=== PATIENT | female | born 1955 | race African-American/Black ===

== ENCOUNTER 2019-02-13 13:54 | Inpatient (IN) | payer OTHER ==
[2019-02-13 18:11] VITALS: BMI 19.6
--- NOTE | 2019-02-13 19:05 | HP ---
COWS - Scale Resting Pulse: 0= [place] 80 or Below Sweatin=Flushed/Facial Moisture (Increased facial moisture) Restless Observation: 5= Unable to Sit Still Pupil Size: 0= Normal to Room Light Bone or Joint Aches: 4=Acute Joint/Muscle Pain (Chronic) Runny Nose/ Eye Tearin= Nasal Congestion GI Upset > 30mins: 0= None Tremor Observation: 2= Slight Tremor Visible Yawning Observation: 0= None Anxiety or Irritability: 4=Extreme Anxiety Goose Flesh Skin: 0=Smooth Skin COWS Score: 18 CIWA Score Nausea/Vomitin-No Nausea/No Vomiting Muscle Tremors: 4-Moderate,w/Arms Extend Anxiety: 4-Mod. Anxious/Guarded Agitation: 4-Moderately Restless Paroxysmal Sweats: 3 (Increased facial moisture) Orientation: 1-Uncertain about Date Tacttile Disturbances: 0-None Auditory Disturbances: 0-None Visual Disturbances: 0-None Headache: 3-Moderate (Frontal) CIWA-Ar Total Score: 19 - Admission Criteria OAS Guidelines: Admission for Medically Managed Detox: Requires at least one of the followin. CIWA greater than 12 2. Seizures within the past 24 hours 3. Delirium tremens within the past 24 hours 4. Hallucinations within the past 24 hours 5. Acute intervention needed for co occurring medical disorder 6. Acute intervention needed for co occurring psychiatric disorder 7. Severe withdrawal that cannot be handled at a lower level of care (continued vomiting, continued diarrhea, abnormal vital signs) requiring intravenous medication and/or fluids 8. Patient presents the following: CIWA greater than 12 Admission Criteria Met: Admission criteria met Admission ROS [facility] Chief Complaint: Here for alcohol withdrawal. Allergies/Adverse Reactions: Allergies Allergy/AdvReac Type Severity Reaction Status Date / Time erythromycin base Allergy Verified 02/13/19 18:04 History of Present Illness: First admission for this 63 yof w/ hx AUD and chronic hip and knee pain x 3 years. Has been on oxycodone x 3 years. States never treated in past for alcohol or drug. Alcohol use since age 11. Current use past 3-4 years Cocaine use since age 11 Opiates: Heroin use age 11 - 28's. Illicit Methadone use 1-2 x/week; unsure of dosage; Using for 3-4 years Prescribed opiates x 3 years. PMHx: HIV+ (on Genvoya), Knee pain, (R) hip pain, Varicose veins, MHHx: Anxiety, depression. Denies thoughts of harming self or others. Sees Provider regularly. Patient informed that oxycodone will not be given for pain and verbalized an understanding. Patient Name: Rupa Kasper Date: 1955 Address: [address] [place] [address] Sex: Female Rx Written Rx Dispensed Drug Quantity Days Supply Prescriber Name 02/11/2019 02/11/2019 oxycodone hcl 20 mg tablet 90 30 Reji, Pallavi 01/12/2019 01/13/2019 oxycodone hcl 20 mg tablet 90 30 Edwardo Null) 12/15/2018 12/15/2018 oxycodone hcl 20 mg tablet 90 30 Light, Paola S 11/14/2018 11/14/2018 oxycodone hcl 20 mg tablet 90 30 Reji, Pallavi 10/14/2018 10/14/2018 oxycodone hcl 20 mg tablet 90 30 Edwardo Null) 09/12/2018 09/13/2018 oxycodone hcl 20 mg tablet 90 30 Reji, Pallavi 08/14/2018 08/15/2018 oxycodone hcl 20 mg tablet 90 30 Reji, Pallavi 07/15/2018 07/16/2018 oxycodone hcl 20 mg tablet 90 30 Reji, Pallavi 06/16/2018 06/17/2018 oxycodone hcl 20 mg tablet 90 30 Reji, Pallavi 05/14/2018 05/15/2018 oxycodone hcl 20 mg tablet 90 30 Reji, Pallavi 04/14/2018 04/15/2018 oxycodone hcl 20 mg tablet 90 30 Light, Paola S 03/13/2018 03/14/2018 oxycodone hcl 20 mg tablet 90 30 Reji, Pallavi Exam Limitations: No Limitations - Ebola screening Have you traveled outside of the country in the last 21 days: No Have you had contact with anyone from an Ebola affected area: No Have you been sick,other than usual withdrawal symptoms: No (Denies recent exposure to measles) Do you have a fever: No - Review of Systems Constitutional: Diaphoresis, Changes in sleep (Difficulty falling asleep.) EENT: reports: Blurred Vision, Nose Congestion, Dental Problems (No teeth) Respiratory: reports: No Symptoms reported Cardiac: reports: No Symptoms Reported GI: reports: No Symptoms Reported : reports: No Symptoms Reported Musculoskeletal: reports: Joint Pain ((R) hip and Silverio knee pain. Pain is sharp "8". Improves w/ pain medication and rest. Worse w/ walking.) Integumentary: reports: Other (Varicose veins) Neuro: reports: Headache (Frontal) Endocrine: reports: No Symptoms Reported Hematology: reports: No Symptoms Reported Psychiatric: reports: Judgement Intact, Agitated, Anxious, Depressed Other Systems: Reviewed and Negative Patient History - PPD History Previous Implant?: Yes Documented Results: Negative w/o proof Implanted On Prior [facility] Admission?: Yes PPD to be Administered?: Yes - Smoking Cessation Smoking history: Current every day smoker Have you smoked in the past 12 months: Yes Aproximately how many cigarettes per day: 20 Hx Chewing Tobacco Use: No Initiated information on smoking cessation: Yes 'Breaking Loose' booklet given: 02/13/19 - Substance & Tx. History Hx Alcohol Use: Yes Hx Substance Use: Yes Substance Use Type: Alcohol, Cocaine, Heroin, Prescribed (Oxycodone ) Hx Substance Use Treatment: Yes - Substances abused Heroin Substance route: Inhalation Frequency: Daily Amount used: 5 bags Age of first use: 11 Date of last use: 02/13/19 Alcohol Substance route: Oral Frequency: Daily Amount used: 5 12 0z of vodka and 5 24 oz of beer Age of first use: 10 Date of last use: 02/13/19 Non-Rx Methadone Substance route: Oral Frequency: 1-2 times per week Amount used: 2 capfulls Age of first use: 59 Date of last use: 02/12/19 Admission Physical Exam BHS - Vital Signs Vital Signs: Vital Signs - 24 hr 02/13/19 18:06 Temperature 97.7 F Pulse Rate 76 Respiratory 18 Rate Blood Pressure 107/64 - Physical General Appearance: Yes: Moderate Distress, Tremorous, Irritable, Sweating ( Increased facial moisture), Anxious HEENTM: Yes: Hearing grossly Normal, Normocephalic, ELENA (Pupils = 3 mm), Pharynx Normal, Nasal Congestion, Rhinorrhea Respiratory: Yes: Lungs Clear, Normal Breath Sounds, No Respiratory Distress Neck: Yes: No masses,lesions,Nodules, Supple Breast: Yes: Breast Exam Deferred Cardiology: Yes: Regular Rhythm, Regular Rate, S1, S2 Abdominal: Yes: Non Tender, Soft, Hernia (Ventral hernia, soft, reducible, non- tender) Genitourinary: Yes: Within Normal Limits Back: Yes: Normal Inspection Musculoskeletal: Yes: full range of Motion Extremities: Yes: Normal Capillary Refill, Tremors (mild), Other (Silverio engorged varicose veins. pedal pulses (+).) Neurological: Yes: Alert, Motor Strength 5/5 Integumentary: Yes: Normal Color, Warm Lymphatic: Yes: Within Normal Limits - Diagnostic (1) Alcohol dependence with uncomplicated withdrawal Current Visit: Yes Status: Acute (2) Opioid dependence with withdrawal Current Visit: Yes Status: Acute Comment: using licit and illicit opiates (3) Varicose veins of both lower extremities Current Visit: Yes Status: Chronic Qualifiers: Varicose vein complication: asymptomatic Qualified Code(s): I83.93 - Asymptomatic varicose veins of bilateral lower extremities (4) Ventral hernia Current Visit: Yes Status: Chronic Qualifiers: Obstruction and gangrene presence: without obstruction or gangrene Qualified Code(s): K43.9 - Ventral hernia without obstruction or gangrene (5) Nicotine dependence, uncomplicated Current Visit: Yes Status: Chronic Qualifiers: Nicotine product type: cigarettes Qualified Code(s): F17.210 - Nicotine dependence, cigarettes, uncomplicated (6) Cocaine dependence, uncomplicated Current Visit: Yes Status: Chronic (7) Unsteady gait Current Visit: Yes Status: Chronic (8) Joint pain Current Visit: Yes Status: Chronic Qualifiers: Joint pain location: unspecified Qualified Code(s): M25.50 - Pain in unspecified joint Comment: (R) Hip, both knees (9) HIV (human immunodeficiency virus infection) Current Visit: Yes Status: Chronic Qualifiers: HIV symptom status: unspecified Qualified Code(s): B20 - Human immunodeficiency virus [HIV] disease Cleared for Admission [facility] - Detox or Rehab [facility] Level of Care: Medically Managed Detox Regimen/Protocol: Methadone/Librium Claeared for Rehab Admission: No Breathalyzer - Breathalyzer Breathalyzer: 0.010 Urine Drug Screen - Test Device Lot number: [id number] Expiration date: 10/29/19 - Control Is test valid?: Yes - Results Drug screen NEGATIVE: No Urine drug screen results: SHEN-Cocaine, OXY-Oxycodone, MTD-Methadone Inpatient Rehab Admission - Rehab Decision to Admit Inpatient rehab admission?: No
[2019-02-13] MEDS ORDERED: MAG HYDROX/AL HYDROX/SIMETH 30 ML UNIT-DOSE CUP PO PRN (19:41)
[2019-02-13] MEDS ORDERED: MENTHOL/PHENOL 1 EACH UD MM PRN (19:41)
[2019-02-13] MEDS ORDERED: BISMUTH SUBSALICYLATE 524 MG/30 ML UD PO PRN (19:41)
[2019-02-13] MEDS ORDERED: cloNIDine HCL 0.1 MG TABLET PO PRN (19:41)
[2019-02-13] MEDS ORDERED: ACETAMINOPHEN 325 MG TABLET (FP) PO PRN (19:41)
[2019-02-13] MEDS ORDERED: MAGNESIUM HYDROX 2400MG/30ML ORAL SUSPENSION 30 ML CUP PO PRN (19:41)
[2019-02-13] MEDS ORDERED: IBUPROFEN 400 MG TABLET (FP) PO PRN (19:41)
[2019-02-13] MEDS ORDERED: MELATONIN 5 MG TABLETS PO PRN (19:41)
[2019-02-13] MEDS ORDERED: chlordiazePOXIDE HCL 10 MG CAPSULE PO PRN (19:41)
[2019-02-13] MEDS ORDERED: NICOTINE POLACRILEX 2 MG GUM BUC PRN (19:41)
[2019-02-13] MEDS ORDERED: MAGNESIUM CITRATE 300 ML BOTTLE PO PRN (19:41)
[2019-02-13] MEDS ORDERED: chlordiazePOXIDE HCL 25 MG CAPSULE PO ONE (19:41)
[2019-02-13] MEDS: chlordiazePOXIDE HCL 25 MG CAPSULE PO SCH (21:58)
[2019-02-13] MEDS: THIAMINE HCL 100 MG TABLET (FP) PO SCH (22:00)
[2019-02-13] MEDS ORDERED: METHADONE HCL 10 MG TABLET (FOR DETOX USE ONLY) PO ONE (23:00)
[2019-02-14] MEDS ORDERED: LORazepam 2 MG/ML SDV VIAL IM ONE (03:10)
[2019-02-14] MEDS ORDERED: KETOROLAC TROMETHAMINE 30 MG/1 ML VIAL IM ONE (03:11)
[2019-02-14] MEDS: chlordiazePOXIDE HCL 25 MG CAPSULE PO SCH ×2 (05:08→12:39)
[2019-02-14] MEDS ORDERED: METHADONE HCL 10 MG TABLET (FOR DETOX USE ONLY) PO ONE (10:00)
[2019-02-14] MEDS ORDERED: PATIENT'S OWN MEDICATION (NON-FORMULARY) (Elviteg/Cob/Emtri/Tenof Alafen 1 EACH) PO SCH (10:00)
[2019-02-14 10:17] LABS: EPI CELLS 2.4 /HPF (0-5/HPF); HYALINE CASTS 12 /lpf (0-8); URINE APPEARANCE CLEAR; URINE BACTERIA 98.2 /hpf (NEGATIVE); URINE BILIRUBIN NEGATIVE (NEGATIVE); URINE COLOR YELLOW; URINE GLUCOSE (UA) NEGATIVE (NEGATIVE); URINE KETONE NEGATIVE (NEGATIVE); URINE LEUK ESTERASE TRACE (NEGATIVE); URINE NITRITE NEGATIVE (NEGATIVE); URINE PROTEIN TRACE (NEGATIVE); URINE RBC 10 /hpf (0-4); URINE UROBILINOGEN 0.2 mg/dL (0.2-1.0); URINE WBC 13 /hpf (0-5)
[2019-02-14] MEDS: amLODIPine BESYLATE 10 MG TABLET (FP) PO SCH (11:00)
[2019-02-14] MEDS: GABAPENTIN 300 MG CAPSULE (FP) PO SCH ×2 (11:06→22:42)
[2019-02-14] MEDS: PRENATAL VITAMINS W/ FOLIC ACID TABLET (FP) PO SCH (11:06)
[2019-02-14] MEDS: NICOTINE 21 MG/24 HOURS TOPICAL PATCH TD SCH (11:12)
--- NOTE | 2019-02-14 11:27 | PN ---
[facility] Progress Note Note: PT IS ON 1:1 FOR SAFETY DUE TO AGITATION AND INCREASED MOVEMENT. PT WAS SEEN IN BED WITH MOST OF BREAKFAST ON TABLE EATEN. PT WAS BEING HELPED BY THE NURSE'S DISTRICT PLANT SUPERVISOR. PT WAS CALM AND TAKING A NAP SOON AFTER BREAKFAST AT THE TIME OF ENCOUNTER. Vital Signs 02/14/19 02/14/19 06:30 09:44 Temperature 97.6 F Pulse Rate 62 Respiratory 18 18 Rate Blood Pressure 96/54 L Laboratory Tests 02/13/19 11:10 Urine Color Yellow Urine Appearance Clear Urine pH 5.0 Ur Specific [place] 1.020 Urine Protein Trace Urine Glucose (UA) Negative Urine Ketones Negative Urine Blood Trace Urine Nitrite Negative Urine Bilirubin Negative Urine Urobilinogen 0.2 Ur Leukocyte Esterase Trace Urine WBC (Auto) 13 Urine RBC (Auto) 10 Urine Casts (Auto) 12 U Epithel Cells (Auto) 2.4 Urine Bacteria (Auto) 98.2 NO LABS DRAWN SO FAR ON THIS PATIENT. PLAN:MAINTAIN SAFETY PER PROTOCOL. FOLLOW UP WITH ADMISSION LAB WORK WHEN PT IS LESS AGITATED. WILL SEE PATIENT AGAIN WHEN AWAKE TO ASSESS STATUS. ADDENDUM:NURSE CALLED THIS CLICKING MACHINE OPERATOR TO REPORT THAT PT BROUGHT IN HER LOOSE MEDICATIONS OF WHICH SPECIFIC CONCERN WAS GENVOYA. PHARMACIST RIKY WAS UNABLE TO DISPENSE DUE TO UNCONFIRMED CURRENT USE OF MEDICATION. THIS CLICKING MACHINE OPERATOR CALLED PT[facility] S HOME PHARMAC[facility] GENVOYA RX ON AND 02/11/19. PT WAS GIVEN #30 DAYS SUPPLY ON LAST GRIEVANCE AND APPEALS SPECIALIST.
[2019-02-14] MEDS: KETOROLAC TROMETHAMINE 10 MG TABLET PO PRN ×2 (12:19→22:41)
--- NOTE | 2019-02-14 12:26 | CONSULT ---
[facility] Psychiatric Consult - Data Date of interview: 02/14/19 Admission source: [facility] Identifying data: First admission to [facility] for this 63 y/o AA female self- referred for detoxification (cocaine, heroin, alcohol). Examined at [address] [place] [address]. Patient is , a mother of two, domiciled, disabled, unemployed and supported on SSI benefits. Substance Abuse History: Confirmed by patient. Details in current [facility] report as follows : Smoking history: Current every day smoker. Have you smoked in the past 12 months: Yes. Aproximately how many cigarettes per day: 20. Hx Chewing Tobacco Use: No. Initiated information on smoking cessation: Yes. 'Breaking Loose' booklet given: 02/13/19. - Substance & Tx. History. Hx Alcohol Use: Yes. Hx Substance Use: Yes. Substance Use Type: Alcohol, Cocaine, Heroin, Prescribed (Oxycodone ). Hx Substance Use Treatment: Yes. - Substances abused. Heroin. Substance route: Inhalation. Frequency: Daily. Amount used: 5 bags. Age of first use: 11. Date of last use: 02/13/19. Alcohol. Substance route: Oral. Frequency: Daily. Amount used: 5 12 0z of vodka and 5 24 oz of beer. Age of first use: 10. Date of last use: 02/13/19. Non-Rx Methadone. Substance route: Oral. Frequency: 1-2 times per week. Amount used : 2 capfulls. Age of first use: 59. Date of last use: 02/12/19 Medical History: Remarkable for HIV infection, hip pain and varicose veins. Psychiatric History: Patient denies history of psychiatric hospitalizations, OPD care and suicide attempts. Physical/Sexual Abuse/Trauma History: Patient denies history of abuse. Additional Comment: Urine drug screen results: SHEN-Cocaine, OXY-Oxycodone, MTD- Methadone. Noted. Mental Status Exam - Mental Status Exam Alert and Oriented to: Time, Place, Person Cognitive Function: Grossly Intact Patient Appearance: Disheveled (thin habitus, small stature) Mood: Withdrawn, Irritable Affect: Mood Congruent Patient Behavior: Restless, Fatigued, Cooperative Speech Pattern: Clear Voice Loudness: Normal Thought Process: Disorganized Thought Disorder: Bizarre Hallucinations: Denies Suicidal Ideation: Denies Homicidal Ideation: Denies Insight/Judgement: Poor Sleep: Poorly Appetite: Poor, Weight loss Gait/Station: Other (unsteady) Psychiatric Findings - Problem List ([place] 1, 2,3) (1) Alcohol dependence with uncomplicated withdrawal Current Visit: Yes Status: Acute (2) Opioid dependence with withdrawal Current Visit: Yes Status: Acute Comment: using licit and illicit opiates (3) Cocaine dependence, uncomplicated Current Visit: Yes Status: Chronic (4) Nicotine dependence, uncomplicated Current Visit: Yes Status: Chronic Qualifiers: Nicotine product type: cigarettes Qualified Code(s): F17.210 - Nicotine dependence, cigarettes, uncomplicated (5) Substance induced mood disorder Current Visit: Yes Status: Suspected (6) Insomnia Current Visit: Yes Status: Chronic (7) Unsteady gait Current Visit: Yes Status: Acute - Initial Treatment Plan Initial Treatment Plan: Continue 1:1 Constant Observation for safety (medical reasons : unsteady gait/high risk for falls). Detoxification. Support. Patient is agreeable with this plan.
[2019-02-14] MEDS: METHOCARBAMOL 500 MG TABLET PO PRN ×2 (13:48→22:42)
--- NOTE | 2019-02-14 15:27 | PN ---
[facility] CIWA - CIWA Score Nausea/Vomitin-No Nausea/No Vomiting Muscle Tremors: 1-None Visible, but [place] Anxiety: 6 Agitation: 6 Paroxysmal Sweats: No Perspiration Orientation: 1-Uncertain about Date Tacttile Disturbances: 3-Moderate Itch/Numb/Burn Auditory Disturbances: 0-None Visual Disturbances: 0-None Headache: 0-None Present CIWA-Ar Total Score: 17 BHS COWS - Scale Resting Pulse: 0= [place] 80 or Below Sweatin= No chills or Flushing Restless Observation: 5= Unable to Sit Still Pupil Size: 0= Normal to Room Light Bone or Joint Aches: 4=Acute Joint/Muscle Pain Runny Nose/ Eye Tearin= None GI Upset > 30mins: 0= None Tremor Observation of Outstretched Hands: 1= Tremor [place], Not Seen Yawning Observation: 0= None Anxiety or Irritability: 2=Irritable/Anxious Goose Flesh Skin: 0=Smooth Skin COWS Score: 12 BHS Progress Note (SOAP) Subjective: PT IS EXTREMELY AGITATED, UNABLE TO SIT STILL. PT IS ON 1:1 FOR SAFETY. REPORTS UNCONTROLLABLE MUSCLE ACHES AND CRAMPS WITH CONSTANT WRIGGLING AND UNSTEADY MOVEMENTS IN BED. PT IS EATING WELL WITH STAFF ASSISTANCE. OCCASIONAL OOB TO BATHROOM WITH CLOSE MONITORING. PT RESPONDS VERBALLY WHEN SHE WANTS TO. Objective: 02/14/19 15:41 Vital Signs 02/14/19 02/14/19 09:44 14:29 Temperature 97.6 F 96.5 F L Pulse Rate 62 55 L Respiratory 18 16 Rate Blood Pressure 96/54 L 91/57 L Laboratory Tests 02/13/19 11:10 Urine Color Yellow Urine Appearance Clear Urine pH 5.0 Ur Specific [place] 1.020 Urine Protein Trace Urine Glucose (UA) Negative Urine Ketones Negative Urine Blood Trace Urine Nitrite Negative Urine Bilirubin Negative Urine Urobilinogen 0.2 Ur Leukocyte Esterase Trace Urine WBC (Auto) 13 Urine RBC (Auto) 10 Urine Casts (Auto) 12 U Epithel Cells (Auto) 2.4 Urine Bacteria (Auto) 98.2 H/P EKG:DONE THIS AFTERNOON WITH PT'S COOPERATION AND AFTER PAIN MEDICATION. EKG:SINUS BRADYCARDIA HR 59 SEPTAL INFARCT,AGE UNDETERMINED ABNORMAL ECG ASSYMPTOMATIC Assessment: 02/14/19 15:45 WITHDRAWAL SX Plan: CONTINUE DETOX PROTOCOLS MAINTAIN SAFETY PROTOCOLS. ASSIST WITH CARE INCREASE PO FLUIDS TOLERATED.
[2019-02-14] MEDS: chlordiazePOXIDE 5 MG CAPSULE PO SCH (21:42)
[2019-02-14] MEDS: THIAMINE HCL 100 MG TABLET (FP) PO SCH (22:41)
[2019-02-15] MEDS: ACETAMINOPHEN 325 MG TABLET (FP) PO PRN (02:18)
[2019-02-15] MEDS: METHOCARBAMOL 500 MG TABLET PO PRN (05:00)
[2019-02-15] MEDS: chlordiazePOXIDE 5 MG CAPSULE PO SCH ×2 (05:15→12:41)
[2019-02-15] MEDS: KETOROLAC TROMETHAMINE 10 MG TABLET PO PRN (07:01)
[2019-02-15] MEDS ORDERED: KETOROLAC TROMETHAMINE 30 MG/1 ML VIAL IM PRN (09:32)
[2019-02-15] MEDS: ELVITEG/COB/EMTRI/TENOF (GENVOYA) TABLET (NF) PO SCH (09:53)
[2019-02-15] MEDS: NICOTINE 21 MG/24 HOURS TOPICAL PATCH TD SCH (09:53)
[2019-02-15] MEDS: PRENATAL VITAMINS W/ FOLIC ACID TABLET (FP) PO SCH (09:54)
[2019-02-15] MEDS: GABAPENTIN 300 MG CAPSULE (FP) PO SCH ×2 (09:54→21:32)
[2019-02-15] MEDS: amLODIPine BESYLATE 10 MG TABLET (FP) PO SCH (09:54)
[2019-02-15] MEDS ORDERED: METHADONE HCL 5 MG TABLET (FOR DETOX USE ONLY) PO ONE (10:00)
[2019-02-15 10:16] LABS: HEMATOCRIT 29.3 % (32.4-45.2); HEMOGLOBIN 9.7 GM/dL (10.7-15.3); MCH 32.4 pg (25.7-33.7); MCHC 33.2 g/dl (32.0-36.0); MEAN CELL VOLUME 97.6 fl (80-96); MEAN PLT VOLUME 8.5 fl (7.5-11.1); PLATELET COUNT 149 K/MM3 (134-434); RDW 14.4 % (11.6-15.6); WHITE BLOOD COUNT 2.3 K/mm3 (4.0-10.0)
[2019-02-15 10:21] LABS: ALBUMIN 3.1 g/dl (3.4-5.0); BILIRUBIN,TOTAL 0.3 mg/dL (0.2-1); CALCIUM 8.3 mg/dL (8.5-10.1); POTASSIUM 4.2 mmol/L (3.5-5.1); TOT PROT 6.6 g/dl (6.4-8.2)
[2019-02-15] MEDS ORDERED: IBUPROFEN 600 MG TABLET (FP) PO PRN (12:56)
--- NOTE | 2019-02-15 14:42 | PN ---
S CIWA - CIWA Score Nausea/Vomitin-Mild Nausea/No Vomiting Muscle Tremors: 3 Anxiety: 2 Agitation: 2 Paroxysmal Sweats: 1-Minimal Palms Moist Orientation: 3-Disoriented Date>2 days (ammonia level) Tacttile Disturbances: 0-None Auditory Disturbances: 0-None Visual Disturbances: 0-None Headache: 0-None Present CIWA-Ar Total Score: 12 BHS COWS - Scale Resting Pulse: 0= [place] 80 or Below Sweatin= Chills/Flushing Restless Observation: 0= Sits Still Pupil Size: 0= Normal to Room Light Bone or Joint Aches: 1= Mild Discomfort Runny Nose/ Eye Tearin= Nasal Congestion GI Upset > 30mins: 1= Stomach Cramp Tremor Observation of Outstretched Hands: 2= Slight Tremor Visible Yawning Observation: 2= >3x During Session Anxiety or Irritability: 1=Feels Anxious/Irritable Goose Flesh Skin: 0=Smooth Skin COWS Score: 9 S Progress Note (SOAP) Subjective: sleeping on the bed most of the day tolerate fluid well assisted to bathroom continue one on one observation for safety patient is disoriented poor attention spand ammonia level Objective: 02/15/19 14:44 Vital Signs Temperature 96.1 F L 02/15/19 13:47 Pulse Rate 54 L 02/15/19 13:47 Respiratory Rate 16 02/15/19 13:47 Blood Pressure 90/64 02/15/19 13:47 O2 Sat by Pulse Oximetry (%) Laboratory Last Values WBC 2.3 K/mm3 (4.0-10.0) L 02/15/19 07:50 RBC 3.00 M/mm3 (3.60-5.2) L 02/15/19 07:50 Hgb 9.7 GM/dL (10.7-15.3) L 02/15/19 07:50 Hct 29.3 % (32.4-45.2) L 02/15/19 07:50 MCV 97.6 fl (80-96) H 02/15/19 07:50 MCH 32.4 pg (25.7-33.7) 02/15/19 07:50 MCHC 33.2 g/dl (32.0-36.0) 02/15/19 07:50 RDW 14.4 % (11.6-15.6) 02/15/19 07:50 Plt Count 149 K/MM3 (134-434) 02/15/19 07:50 MPV 8.5 fl (7.5-11.1) 02/15/19 07:50 Sodium 138 mmol/L (136-145) 02/15/19 07:50 Potassium 4.2 mmol/L (3.5-5.1) 02/15/19 07:50 Chloride 105 mmol/L (98-107) 02/15/19 07:50 Carbon Dioxide 28 mmol/L (21-32) 02/15/19 07:50 Anion Gap 4 MMOL/L (8-16) L 02/15/19 07:50 BUN 35 mg/dL (7-18) H 02/15/19 07:50 Creatinine 2.0 mg/dL (0.55-1.3) H 02/15/19 07:50 Est GFR (CKD-EPI)AfAm 29.62 02/15/19 07:50 Est GFR (CKD-EPI)NonAf 25.55 02/15/19 07:50 Random Glucose 77 mg/dL (74-106) 02/15/19 07:50 Calcium 8.3 mg/dL (8.5-10.1) L 02/15/19 07:50 Total Bilirubin 0.3 mg/dL (0.2-1) 02/15/19 07:50 AST 33 U/L (15-37) 02/15/19 07:50 ALT 19 U/L (13-61) 02/15/19 07:50 Alkaline Phosphatase 70 U/L (45-117) 02/15/19 07:50 Total Protein 6.6 g/dl (6.4-8.2) 02/15/19 07:50 Albumin 3.1 g/dl (3.4-5.0) L 02/15/19 07:50 Urine Color Yellow 02/13/19 11:10 Urine Appearance Clear 02/13/19 11:10 Urine pH 5.0 (5.0-8.0) 02/13/19 11:10 Ur Specific [place] 1.020 (1.010-1.035) 02/13/19 11:10 Urine Protein Trace (NEGATIVE) 02/13/19 11:10 Urine Glucose (UA) Negative (NEGATIVE) 02/13/19 11:10 Urine Ketones Negative (NEGATIVE) 02/13/19 11:10 Urine Blood Trace (NEGATIVE) 02/13/19 11:10 Urine Nitrite Negative (NEGATIVE) 02/13/19 11:10 Urine Bilirubin Negative (NEGATIVE) 02/13/19 11:10 Urine Urobilinogen 0.2 mg/dL (0.2-1.0) 02/13/19 11:10 Ur Leukocyte Esterase Trace (NEGATIVE) 02/13/19 11:10 Urine WBC (Auto) 13 /hpf (0-5) 02/13/19 11:10 Urine RBC (Auto) 10 /hpf (0-4) 02/13/19 11:10 Urine Casts (Auto) 12 /lpf (0-8) 02/13/19 11:10 U Epithel Cells (Auto) 2.4 /HPF (0-5/HPF) 02/13/19 11:10 Urine Bacteria (Auto) 98.2 /hpf (NEGATIVE) 02/13/19 11:10 RPR Titer Nonreactive (NONREACTIVE) 02/15/19 07:50 lab noted 02/15/19 14:49 uti bactrim ds bid Assessment: 02/15/19 14:49 withdrawal sx Plan: continue detox
[2019-02-15] MEDS ORDERED: chlordiazePOXIDE HCL 10 MG CAPSULE PO PRN (21:00)
[2019-02-15] MEDS: THIAMINE HCL 100 MG TABLET (FP) PO SCH (21:31)
[2019-02-15] MEDS: SULFAMETHOXAZOLE/TRIMETHOPRIM 800MG/160MG D.S. TABLET PO SCH (21:32)
[2019-02-15] MEDS: chlordiazePOXIDE HCL 10 MG CAPSULE PO SCH (21:32)
[2019-02-16] MEDS: METHOCARBAMOL 500 MG TABLET PO PRN (05:07)
[2019-02-16] MEDS: chlordiazePOXIDE HCL 10 MG CAPSULE PO SCH ×3 (05:07→22:07)
[2019-02-16] MEDS: ACETAMINOPHEN 325 MG TABLET (FP) PO PRN (05:07)
[2019-02-16] MEDS ORDERED: METHADONE HCL 10 MG TABLET (FOR DETOX USE ONLY) PO ONE (10:00)
[2019-02-16] MEDS: NICOTINE 21 MG/24 HOURS TOPICAL PATCH TD SCH (10:46)
[2019-02-16] MEDS: GABAPENTIN 300 MG CAPSULE (FP) PO SCH ×2 (10:46→22:07)
[2019-02-16] MEDS: amLODIPine BESYLATE 10 MG TABLET (FP) PO SCH (10:46)
[2019-02-16] MEDS: SULFAMETHOXAZOLE/TRIMETHOPRIM 800MG/160MG D.S. TABLET PO SCH ×2 (10:46→22:07)
[2019-02-16] MEDS: ELVITEG/COB/EMTRI/TENOF (GENVOYA) TABLET (NF) PO SCH (10:47)
[2019-02-16] MEDS: PRENATAL VITAMINS W/ FOLIC ACID TABLET (FP) PO SCH (10:48)
--- NOTE | 2019-02-16 11:08 | EKG ---
Test Reason : Blood Pressure : / mmHG Vent. Rate : 059 BPM Atrial Rate : 059 BPM P-R Int : 192 ms QRS Dur : 068 ms QT Int : 434 ms P-R-T Axes : 056 050 045 degrees QTc Int : 429 ms SINUS BRADYCARDIA SEPTAL INFARCT , AGE UNDETERMINED ABNORMAL ECG NO PREVIOUS ECGS AVAILABLE Confirmed by BANDAR AL MD ([id number]) on 02/16/2019 11:07:42 AM Referred By: Confirmed By:BANDAR AL MD
--- NOTE | 2019-02-16 15:59 | PN ---
[facility] CIWA - CIWA Score Nausea/Vomitin-Mild Nausea/No Vomiting Muscle Tremors: 3 Anxiety: 2 Agitation: 2 Paroxysmal Sweats: 1-Minimal Palms Moist Orientation: 0-Oriented Tacttile Disturbances: 0-None Auditory Disturbances: 0-None Visual Disturbances: 0-None Headache: 0-None Present CIWA-Ar Total Score: 9 S COWS - Scale Resting Pulse: 0= [place] 80 or Below Sweatin= Chills/Flushing Restless Observation: 0= Sits Still Pupil Size: 0= Normal to Room Light Bone or Joint Aches: 1= Mild Discomfort Runny Nose/ Eye Tearin= Nasal Congestion GI Upset > 30mins: 0= None Tremor Observation of Outstretched Hands: 1= Tremor [place], Not Seen Yawning Observation: 0= None Anxiety or Irritability: 1=Feels Anxious/Irritable Goose Flesh Skin: 0=Smooth Skin COWS Score: 5 S Progress Note (SOAP) Subjective: doing better today alert coherent steady gait discontinue one on one patient had brief conversation with the counselor today for discharge planning patient lives along "I drank too much the other days" patient has three children but live in different states and "working" daily Objective: 02/16/19 16:03 Vital Signs Temperature 98.9 F 02/16/19 13:45 Pulse Rate 56 L 02/16/19 13:45 Respiratory Rate 18 02/16/19 13:45 Blood Pressure 110/75 02/16/19 13:45 O2 Sat by Pulse Oximetry (%) Laboratory Last Values WBC 2.3 K/mm3 (4.0-10.0) L 02/15/19 07:50 RBC 3.00 M/mm3 (3.60-5.2) L 02/15/19 07:50 Hgb 9.7 GM/dL (10.7-15.3) L 02/15/19 07:50 Hct 29.3 % (32.4-45.2) L 02/15/19 07:50 MCV 97.6 fl (80-96) H 02/15/19 07:50 MCH 32.4 pg (25.7-33.7) 02/15/19 07:50 MCHC 33.2 g/dl (32.0-36.0) 02/15/19 07:50 RDW 14.4 % (11.6-15.6) 02/15/19 07:50 Plt Count 149 K/MM3 (134-434) 02/15/19 07:50 MPV 8.5 fl (7.5-11.1) 02/15/19 07:50 Sodium 138 mmol/L (136-145) 02/15/19 07:50 Potassium 4.2 mmol/L (3.5-5.1) 02/15/19 07:50 Chloride 105 mmol/L (98-107) 02/15/19 07:50 Carbon Dioxide 28 mmol/L (21-32) 02/15/19 07:50 Anion Gap 4 MMOL/L (8-16) L 02/15/19 07:50 BUN 35 mg/dL (7-18) H 02/15/19 07:50 Creatinine 2.0 mg/dL (0.55-1.3) H 02/15/19 07:50 Est GFR (CKD-EPI)AfAm 29.62 02/15/19 07:50 Est GFR (CKD-EPI)NonAf 25.55 02/15/19 07:50 Random Glucose 77 mg/dL (74-106) 02/15/19 07:50 Calcium 8.3 mg/dL (8.5-10.1) L 02/15/19 07:50 Total Bilirubin 0.3 mg/dL (0.2-1) 02/15/19 07:50 AST 33 U/L (15-37) 02/15/19 07:50 ALT 19 U/L (13-61) 02/15/19 07:50 Alkaline Phosphatase 70 U/L (45-117) 02/15/19 07:50 Ammonia 61.60 umol/L (11-32) H 02/16/19 08:40 Total Protein 6.6 g/dl (6.4-8.2) 02/15/19 07:50 Albumin 3.1 g/dl (3.4-5.0) L 02/15/19 07:50 Urine Color Yellow 02/13/19 11:10 Urine Appearance Clear 02/13/19 11:10 Urine pH 5.0 (5.0-8.0) 02/13/19 11:10 Ur Specific [place] 1.020 (1.010-1.035) 02/13/19 11:10 Urine Protein Trace (NEGATIVE) 02/13/19 11:10 Urine Glucose (UA) Negative (NEGATIVE) 02/13/19 11:10 Urine Ketones Negative (NEGATIVE) 02/13/19 11:10 Urine Blood Trace (NEGATIVE) 02/13/19 11:10 Urine Nitrite Negative (NEGATIVE) 02/13/19 11:10 Urine Bilirubin Negative (NEGATIVE) 02/13/19 11:10 Urine Urobilinogen 0.2 mg/dL (0.2-1.0) 02/13/19 11:10 Ur Leukocyte Esterase Trace (NEGATIVE) 02/13/19 11:10 Urine WBC (Auto) 13 /hpf (0-5) 02/13/19 11:10 Urine RBC (Auto) 10 /hpf (0-4) 02/13/19 11:10 Urine Casts (Auto) 12 /lpf (0-8) 02/13/19 11:10 U Epithel Cells (Auto) 2.4 /HPF (0-5/HPF) 02/13/19 11:10 Urine Bacteria (Auto) 98.2 /hpf (NEGATIVE) 02/13/19 11:10 POC Urine HCG, Qual Negative 02/13/19 18:41 RPR Titer Nonreactive (NONREACTIVE) 02/15/19 07:50 lab noted patient agrees to follow up with her infectious disease specialist for aftercare Assessment: 02/16/19 16:04 withdrawal sx Plan: continue detox
[2019-02-16] MEDS: THIAMINE HCL 100 MG TABLET (FP) PO SCH (22:07)
[2019-02-16] MEDS: LACTULOSE 20 GM/30 ML UDC (FOR ORAL USE ONLY) PO SCH (22:07)
[2019-02-17] MEDS: LACTULOSE 20 GM/30 ML UDC (FOR ORAL USE ONLY) PO SCH (05:37)
[2019-02-17] MEDS ORDERED: METHADONE HCL 5 MG TABLET (FOR DETOX USE ONLY) PO ONE (06:00)
[2019-02-17 09:14] VITALS: BP 119/73; PULSE 66; TEMP 95.8
[2019-02-17] MEDS: PRENATAL VITAMINS W/ FOLIC ACID TABLET (FP) PO SCH (10:43)
[2019-02-17] MEDS: ELVITEG/COB/EMTRI/TENOF (GENVOYA) TABLET (NF) PO SCH (10:44)
[2019-02-17] MEDS: NICOTINE 21 MG/24 HOURS TOPICAL PATCH TD SCH (10:46)
[2019-02-17] MEDS: SULFAMETHOXAZOLE/TRIMETHOPRIM 800MG/160MG D.S. TABLET PO SCH (10:46)
[2019-02-17] MEDS: amLODIPine BESYLATE 10 MG TABLET (FP) PO SCH (10:51)
[2019-02-17] MEDS: GABAPENTIN 300 MG CAPSULE (FP) PO SCH (11:11)
--- NOTE | 2019-02-17 15:56 | DS ---
[facility] Detox Discharge Summary Admission Date: 02/13/19 Discharge Date: 02/17/19 - History Present History: Alcohol Dependence, Opioid Dependence Additional Comments: 63 years old female admitted on 02/13/19 for alcohol and opiate withdrawal stabilization completed detox regimen patient preferring to go to community self help support group for alcohol sobriety patient is in pain management fo hiv neurogenic pain received 30 days pain medication on 02/11/19 patient preferring return to infectious disease specialist for medical and mental issues Pertinent Past History: bring in medication list and lab report to follow up appointment - Physical Exam Results Vital Signs: Vital Signs Temperature 95.8 F L 02/17/19 09:13 Pulse Rate 66 02/17/19 09:13 Respiratory Rate 16 02/17/19 09:13 Blood Pressure 119/73 02/17/19 09:13 O2 Sat by Pulse Oximetry (%) Pertinent Admission Physical Exam Findings: alcohol and opiate withdrawal sx Laboratory Last Values WBC 2.3 K/mm3 (4.0-10.0) L 02/15/19 07:50 RBC 3.00 M/mm3 (3.60-5.2) L 02/15/19 07:50 Hgb 9.7 GM/dL (10.7-15.3) L 02/15/19 07:50 Hct 29.3 % (32.4-45.2) L 02/15/19 07:50 MCV 97.6 fl (80-96) H 02/15/19 07:50 MCH 32.4 pg (25.7-33.7) 02/15/19 07:50 MCHC 33.2 g/dl (32.0-36.0) 02/15/19 07:50 RDW 14.4 % (11.6-15.6) 02/15/19 07:50 Plt Count 149 K/MM3 (134-434) 02/15/19 07:50 MPV 8.5 fl (7.5-11.1) 02/15/19 07:50 Sodium 138 mmol/L (136-145) 02/15/19 07:50 Potassium 4.2 mmol/L (3.5-5.1) 02/15/19 07:50 Chloride 105 mmol/L (98-107) 02/15/19 07:50 Carbon Dioxide 28 mmol/L (21-32) 02/15/19 07:50 Anion Gap 4 MMOL/L (8-16) L 02/15/19 07:50 BUN 35 mg/dL (7-18) H 02/15/19 07:50 Creatinine 2.0 mg/dL (0.55-1.3) H 02/15/19 07:50 Est GFR (CKD-EPI)AfAm 29.62 02/15/19 07:50 Est GFR (CKD-EPI)NonAf 25.55 02/15/19 07:50 Random Glucose 77 mg/dL (74-106) 02/15/19 07:50 Calcium 8.3 mg/dL (8.5-10.1) L 02/15/19 07:50 Total Bilirubin 0.3 mg/dL (0.2-1) 02/15/19 07:50 AST 33 U/L (15-37) 02/15/19 07:50 ALT 19 U/L (13-61) 02/15/19 07:50 Alkaline Phosphatase 70 U/L (45-117) 02/15/19 07:50 Ammonia 61.60 umol/L (11-32) H 02/16/19 08:40 Total Protein 6.6 g/dl (6.4-8.2) 02/15/19 07:50 Albumin 3.1 g/dl (3.4-5.0) L 02/15/19 07:50 Urine Color Yellow 02/13/19 11:10 Urine Appearance Clear 02/13/19 11:10 Urine pH 5.0 (5.0-8.0) 02/13/19 11:10 Ur Specific [place] 1.020 (1.010-1.035) 02/13/19 11:10 Urine Protein Trace (NEGATIVE) 02/13/19 11:10 Urine Glucose (UA) Negative (NEGATIVE) 02/13/19 11:10 Urine Ketones Negative (NEGATIVE) 02/13/19 11:10 Urine Blood Trace (NEGATIVE) 02/13/19 11:10 Urine Nitrite Negative (NEGATIVE) 02/13/19 11:10 Urine Bilirubin Negative (NEGATIVE) 02/13/19 11:10 Urine Urobilinogen 0.2 mg/dL (0.2-1.0) 02/13/19 11:10 Ur Leukocyte Esterase Trace (NEGATIVE) 02/13/19 11:10 Urine WBC (Auto) 13 /hpf (0-5) 02/13/19 11:10 Urine RBC (Auto) 10 /hpf (0-4) 02/13/19 11:10 Urine Casts (Auto) 12 /lpf (0-8) 02/13/19 11:10 U Epithel Cells (Auto) 2.4 /HPF (0-5/HPF) 02/13/19 11:10 Urine Bacteria (Auto) 98.2 /hpf (NEGATIVE) 02/13/19 11:10 POC Urine HCG, Qual Negative 02/13/19 18:41 RPR Titer Nonreactive (NONREACTIVE) 02/15/19 07:50 lab noted - Treatment Hospital Course: Detox Protocol Followed, Detoxed Safely, Responded well, Discharged Condition Good, Rehab Referral Accepted Patient has Accepted a Rehab Referral to: infectious disease specilist - Medication Discharge Medications: Ambulatory Orders Amlodipine Besylate [Norvasc -] 10 mg PO DAILY 02/13/19 Bisacodyl [Bisacodyl -] 5 mg PO HS 02/13/19 Elviteg/Cob/Emtri/Tenof Alafen [Genvoya (Non-Formulary)] 1 each PO DAILY Escitalopram Oxalate [Lexapro -] 10 mg PO DAILY 02/13/19 Gabapentin [Neurontin -] 300 mg PO BID 02/13/19 - Diagnosis (1) Alcohol dependence with uncomplicated withdrawal Status: Acute (2) Opioid dependence with withdrawal Status: Acute (3) HIV (human immunodeficiency virus infection) Status: Chronic Qualifiers: HIV symptom status: unspecified Qualified Code(s): B20 - Human immunodeficiency virus [HIV] disease (4) Nicotine dependence, uncomplicated Status: Acute Qualifiers: Nicotine product type: cigarettes Qualified Code(s): F17.210 - Nicotine dependence, cigarettes, uncomplicated (5) Substance induced mood disorder Status: Suspected - AMA Did Patient Leave Against Medical Advice: No
== END 2019-02-17 11:40 | disposition home or self-care (01) | DRG 773 ==
LOC: YASAS 13:54 → Y3N 20:16
PROVIDERS: ADMIT Surgery; ATTEND Surgery
PROC: HZ2ZZZZ Detoxification Services for Substance Abuse Treatment (ICD-10-PCS; principal; 2019-02-13)
DX: F11.23 Opioid dependence with withdrawal (principal); F10.230 Alcohol dependence with withdrawal, uncomplicated; F14.20 Cocaine dependence, uncomplicated; F17.210 Nicotine dependence, cigarettes, uncomplicated; F19.24 Other psychoactive substance dependence with psychoactive substance-induced mood disorder; G47.00 Insomnia, unspecified; Z21 Asymptomatic human immunodeficiency virus [HIV] infection status; R00.1 Bradycardia, unspecified; I83.93 Asymptomatic varicose veins of bilateral lower extremities; R94.31 Abnormal electrocardiogram [ECG] [EKG]; R26.2 Difficulty in walking, not elsewhere classified; M25.50 Pain in unspecified joint
CPT/HCPCS: 36415; 80053; 81003; 81025; 82140; 85027; 86593; 93005; 93010